=== PATIENT | male | born 1970 | race Hispanic/Latino ===

== ENCOUNTER 2022-06-18 12:39 | Inpatient (IN) | payer SELFPAY ==
[~2022-06-18] VITALS: Ht 165.1 cm; Wt 69.8 kg
[2022-06-18] VITALS (14 sets, daily range): BP systolic 91–118; BP diastolic 57–72
[2022-06-18 14:16] LABS: BASO% 0.3 % (0-3); EOS% 3.5 % (0-8); HEMATOCRIT 33.7 % (39.0-50.0); HEMOGLOBIN 10.9 g/dl (14.0-18.0); IMMATURE GRANULOCYTES 0.1 % (0.0-5.0); LYMPH% 16.3 % (15-41); MEAN CELL VOLUME 89.2 fL CALC (80.0-100.0); MEAN CORPUSCULAR HGB 28.8 pG CALC (26.0-32.0); MEAN CORPUSCULAR HGB CONC 32.3 g/dL CAL (32.0-36.0); MONO% 6.6 % (2-13); NEUT# 6.96 thou/uL (1.82-7.42); NEUT% 73.2 % (42-76); RED BLOOD COUNT 3.78 mill/uL (4.70-6.10); RED CELL DISTRI WIDTH 13.1 % (11.5-15.5)
[2022-06-18 14:18] LABS: GFR FOR AFR.AMER. > 60 ML/MIN (>=60 (CALC)); GFR OTHER RACES > 60 ML/MIN (>=60 (CALC))
[2022-06-18 14:30] LABS: ALBUMIN 3.1 g/dL (3.2-5.0); ALKALINE PHOSPHATASE 79 u/l (38-126); ANION GAP 9 (6-22 (CALC)); BILIRUBIN, TOTAL 0.5 mg/dL (0.0-1.4); BUN 15 mg/dL (9-20); BUN/CREATININE RATIO 17 (12-20 (CALC)); CARBON DIOXIDE 26 mmol/l (22-30); CHLORIDE 108 mmol/l (95-108); CREATININE 0.9 mg/dL (0.7-1.3); GFR FOR AFR.AMER. > 60 ML/MIN (>=60 (CALC)); GFR OTHER RACES > 60 ML/MIN (>=60 (CALC)); LIPASE 51 u/l (23-300); POTASSIUM 3.8 mmol/l (3.5-5.1); SGOT/AST 21 u/l (17-59); SODIUM 139 mmol/l (137-146); TOTAL PROTEIN 5.8 g/dL (6.3-8.2)
[2022-06-18 15:54] LABS: URINE BILIRUBIN - DIPSTICK NEGATIVE (NEGATIVE); URINE BLOOD DIPSTICK NEGATIVE (NEGATIVE); URINE COLOR YELLOW; URINE GLUCOSE - DIPSTICK NEGATIVE (NEGATIVE); URINE KETONE NEGATIVE (NEGATIVE); URINE LEUK ESTERASE NEGATIVE (NEGATIVE); URINE PROTEIN - DIPSTICK NEGATIVE (NEG-TRACE)
[2022-06-18 15:57] LABS: URINE NITRITE - DIPSTICK NEGATIVE (Negative)
[2022-06-19 04:57] VITALS: BP 86/50
[2022-06-19 06:03] LABS: BASO% 0.7 % (0-3); EOS% 5.2 % (0-8); HEMATOCRIT 29.3 % (39.0-50.0); HEMOGLOBIN 9.6 g/dl (14.0-18.0); IMMATURE GRANULOCYTES 0.1 % (0.0-5.0); MEAN CORPUSCULAR HGB 29.8 pG CALC (26.0-32.0); MEAN CORPUSCULAR HGB CONC 32.8 g/dL CAL (32.0-36.0); MONO% 9.1 % (2-13); NEUT# 4.39 thou/uL (1.82-7.42); NEUT% 65.9 % (42-76); RED BLOOD COUNT 3.22 mill/uL (4.70-6.10); RED CELL DISTRI WIDTH 13.1 % (11.5-15.5)
[2022-06-19 06:21] LABS: ANION GAP 8 (6-22 (CALC)); BILIRUBIN, TOTAL 0.5 mg/dL (0.0-1.4); BUN 13 mg/dL (9-20); BUN/CREATININE RATIO 15 (12-20 (CALC)); CARBON DIOXIDE 29 mmol/l (22-30); CHLORIDE 108 mmol/l (95-108); CREATININE 0.9 mg/dL (0.7-1.3); GFR FOR AFR.AMER. > 60 ML/MIN (>=60 (CALC)); GFR OTHER RACES > 60 ML/MIN (>=60 (CALC)); POTASSIUM 3.4 mmol/l (3.5-5.1); SODIUM 141 mmol/l (137-146); TOTAL PROTEIN 5.2 g/dL (6.3-8.2)
[2022-06-19 06:22] LABS: ALBUMIN 2.7 g/dL (3.2-5.0); ALKALINE PHOSPHATASE 68 u/l (38-126); SGOT/AST 17 u/l (17-59)
[2022-06-19 07:04] VITALS: BP 90/53
[2022-06-19 15:46] VITALS: BP 91/55
[2022-06-19 18:53] VITALS: BP 95/56
[2022-06-20] VITALS (19 sets, daily range): BP systolic 85–111; BP diastolic 56–72
[2022-06-21 04:18] VITALS: BP 107/72
[2022-06-21 05:35] LABS: BASO% 0.4 % (0-3); EOS% 5.1 % (0-8); HEMATOCRIT 30.8 % (39.0-50.0); IMMATURE GRANULOCYTES 0.1 % (0.0-5.0); LYMPH% 16.1 % (15-41); MEAN CELL VOLUME 93.1 fL CALC (80.0-100.0); MEAN CORPUSCULAR HGB 30.2 pG CALC (26.0-32.0); MEAN CORPUSCULAR HGB CONC 32.5 g/dL CAL (32.0-36.0); MONO% 6.8 % (2-13); NEUT# 5.13 thou/uL (1.82-7.42); NEUT% 71.5 % (42-76); RED BLOOD COUNT 3.31 mill/uL (4.70-6.10); RED CELL DISTRI WIDTH 13.1 % (11.5-15.5)
[2022-06-21 06:44] VITALS: BP 102/66
[2022-06-21 07:15] LABS: ALBUMIN 2.5 g/dL (3.2-5.0); ALKALINE PHOSPHATASE 65 u/l (38-126); ANION GAP 6 (6-22 (CALC)); BILIRUBIN, TOTAL 0.5 mg/dL (0.0-1.4); BUN 9 mg/dL (9-20); BUN/CREATININE RATIO 9 (12-20 (CALC)); CARBON DIOXIDE 28 mmol/l (22-30); CHLORIDE 106 mmol/l (95-108); CREATININE 1.1 mg/dL (0.7-1.3); GFR FOR AFR.AMER. > 60 ML/MIN (>=60 (CALC)); GFR OTHER RACES > 60 ML/MIN (>=60 (CALC)); POTASSIUM 3.6 mmol/l (3.5-5.1); SGOT/AST 22 u/l (17-59); SODIUM 137 mmol/l (137-146); TOTAL PROTEIN 4.8 g/dL (6.3-8.2)
[2022-06-21 14:42] VITALS: BP 106/70
[2022-06-21 19:04] VITALS: BP 96/66
[2022-06-22 04:59] VITALS: BP 101/65
[2022-06-22 06:20] VITALS: BP 101/68
[2022-06-22] MEDS ORDERED: PERCOCET 5/325M1 TAB PO (13:02)
== END 2022-06-22 14:40 | disposition home or self-care (01) | DRG 357 ==
LOC: ED 12:39 → EDBD 12:39 → ED 15:41 → ED-I 18:09 → ED 18:26 → MS2 18:27
PROVIDERS: Family Medicine; ADMIT Surgery; ATTEND Surgery
PROC: 0WJG0ZZ Inspection of Peritoneal Cavity, Open Approach (ICD-10-PCS; principal; 2022-06-20)
PROC: 0T788DZ Dilation of Bilateral Ureters with Intraluminal Device, Via Natural or Artificial Opening Endoscopic (ICD-10-PCS; 2022-06-20)
PROC: 0DBN8ZX Excision of Sigmoid Colon, Via Natural or Artificial Opening Endoscopic, Diagnostic (ICD-10-PCS; 2022-06-20)
DX: C18.7 Malignant neoplasm of sigmoid colon (principal); C78.4 Secondary malignant neoplasm of small intestine; C79.89 Secondary malignant neoplasm of other specified sites; K56.690 Other partial intestinal obstruction; C78.5 Secondary malignant neoplasm of large intestine and rectum; I10 Essential (primary) hypertension; Z90.49 Acquired absence of other specified parts of digestive tract; Z20.822 Contact with and (suspected) exposure to COVID-19
CPT/HCPCS: J0131; Q9967

== ENCOUNTER 2022-07-28 19:35 | Emergency (ER) | payer SELFPAY ==
[~2022-07-28] VITALS: Ht 165.1 cm; Wt 65.9 kg
[~2022-07-28 19:35] MED LIST: PERCOCET 5/325M1 TAB PO
[2022-07-28 21:00] LABS: BASO% 0.2 % (0-3); EOS% 0.2 % (0-8); IMMATURE GRANULOCYTES 0.2 % (0.0-5.0); LYMPH% 5.6 % (15-41); MEAN CELL VOLUME 89.2 fL CALC (80.0-100.0); MEAN CORPUSCULAR HGB 28.8 pG CALC (26.0-32.0); MEAN CORPUSCULAR HGB CONC 32.2 g/dL CAL (32.0-36.0); MONO% 1.2 % (2-13); NEUT# 4.64 thou/uL (1.82-7.42); NEUT% 92.6 % (42-76); RED BLOOD COUNT 4.8 mill/uL (4.70-6.10); RED CELL DISTRI WIDTH 12.2 % (11.5-15.5)
[2022-07-28 21:01] LABS: HEMATOCRIT 42.8 % (39.0-50.0); HEMOGLOBIN 13.8 g/dl (14.0-18.0)
[2022-07-28 21:13] LABS: ALBUMIN 2.8 g/dL (3.2-5.0); ALKALINE PHOSPHATASE 74 u/l (38-126); ANION GAP 7 (6-22 (CALC)); BUN 15 mg/dL (9-20); BUN/CREATININE RATIO 14 (12-20 (CALC)); CARBON DIOXIDE 26 mmol/l (22-30); CHLORIDE 105 mmol/l (95-108); CREATININE 1.1 mg/dL (0.7-1.3); GFR FOR AFR.AMER. > 60 ML/MIN (>=60 (CALC)); GFR OTHER RACES > 60 ML/MIN (>=60 (CALC)); LIPASE 160 u/l (23-300); POTASSIUM 3.3 mmol/l (3.5-5.1); SGOT/AST 26 u/l (17-59); SODIUM 134 mmol/l (137-146); TOTAL PROTEIN 5.7 g/dL (6.3-8.2)
[2022-07-29] MEDS ORDERED: LORTAB5 PO (03:07)
[2022-07-29] MEDS ORDERED: PROMETHAZINE HY25 M1 PO (03:09)
[2022-07-29 03:18] VITALS: BP 126/80
== END 2022-07-29 03:40 | disposition home or self-care (01) | DRG 392 ==
LOC: ED 19:35
PROVIDERS: Family Medicine
DX: R10.9 Unspecified abdominal pain (principal); C18.9 Malignant neoplasm of colon, unspecified; C79.89 Secondary malignant neoplasm of other specified sites; K21.9 Gastro-esophageal reflux disease without esophagitis
CPT/HCPCS: Q9967

== ENCOUNTER 2022-08-24 16:26 | Inpatient (IN) | payer SELFPAY ==
[~2022-08-24] VITALS: Ht 165.1 cm; Wt 69.1 kg
[2022-08-24] VITALS (22 sets, daily range): BP systolic 71–118; BP diastolic 43–69
[~2022-08-24 16:26] MED LIST changes: +LORTAB5 PO; +PROMETHAZINE HY25 M1 PO
--- NOTE | 2022-08-24 16:33 | NUR ---
PATIENT TO ROOM 12
[2022-08-24 17:17] LABS: BASO% 0.3 % (0-3); EOS% 0.1 % (0-8); IMMATURE GRANULOCYTES 0.2 % (0.0-5.0); LYMPH% 7.7 % (15-41); MEAN CELL VOLUME 92.3 fL CALC (80.0-100.0); MEAN CORPUSCULAR HGB 29.3 pG CALC (26.0-32.0); MEAN CORPUSCULAR HGB CONC 31.8 g/dL CAL (32.0-36.0); MONO% 6.6 % (2-13); NEUT# 14.73 thou/uL (1.82-7.42); NEUT% 85.1 % (42-76); RED BLOOD COUNT 3.65 mill/uL (4.70-6.10)
[2022-08-24 17:22] LABS: HEMATOCRIT 33.7 % (39.0-50.0); HEMOGLOBIN 10.7 g/dl (14.0-18.0)
[2022-08-24 17:24] LABS: ALBUMIN 2.3 g/dL (3.2-5.0); ALKALINE PHOSPHATASE 57 u/l (38-126); ANION GAP 11 (6-22 (CALC)); BUN 26 mg/dL (9-20); BUN/CREATININE RATIO 16 (12-20 (CALC)); CARBON DIOXIDE 21 mmol/l (22-30); CHLORIDE 102 mmol/l (95-108); CREATININE 1.6 mg/dL (0.7-1.3); GFR FOR AFR.AMER. 56 ML/MIN (>=60 (CALC)); GFR OTHER RACES 46 ML/MIN (>=60 (CALC)); POTASSIUM 3.6 mmol/l (3.5-5.1); SGOT/AST 26 u/l (17-59); SODIUM 130 mmol/l (137-146)
[2022-08-24 17:30] LABS: BILIRUBIN, TOTAL 0.5 mg/dL (0.2-1.3)
--- NOTE | 2022-08-24 17:58 | NUR ---
Reassessment of patient completed. No distress noted.
[2022-08-24] MEDS ORDERED: ONDANSETRON4 MG PO (18:36)
--- NOTE | 2022-08-24 18:56 | NUR ---
TRANSITION OF CARE REPORT TO CRISTAL BUNN
--- NOTE | 2022-08-24 19:40 | NUR ---
52 yr old VERY pale male adm icu4 per stretcher from er. transferred self to bed. security monitor shows sinus rhythm. ivf cont per rac site & rt chest port. pt is able to speak broken polish. history obtained per pt, sister & er record. oriented to room. fall precautions initiated.
--- NOTE | 2022-08-24 20:00 | NUR ---
voided per urinal. urine spec sent. lab here. blood drawn.
[2022-08-24 20:17] LABS: URINE BILIRUBIN - DIPSTICK NEGATIVE (NEGATIVE); URINE BLOOD DIPSTICK NEGATIVE (NEGATIVE); URINE COLOR YELLOW; URINE GLUCOSE - DIPSTICK NEGATIVE (NEGATIVE); URINE KETONE NEGATIVE (NEGATIVE); URINE LEUK ESTERASE NEGATIVE (NEGATIVE); URINE PH 5.5 (4.5-8.0); URINE PROTEIN - DIPSTICK NEGATIVE (NEG-TRACE); URINE SPECIFIC GRAVITY 1.015; URINE UROBILINOGEN - DIPSTICK 0.2 E.U./dL (0.2)
[2022-08-24 20:19] LABS: URINE NITRITE - DIPSTICK NEGATIVE (Negative)
--- NOTE | 2022-08-24 21:50 | NUR ---
up to bs. stool spec sent to lab.
[2022-08-25] VITALS (95 sets, daily range): BP systolic 91–129; BP diastolic 59–89
--- NOTE | 2022-08-25 00:05 | NUR ---
up to bsc. loose stools cont.
--- NOTE | 2022-08-25 02:00 | NUR ---
eyes closed. no distress. weigher and crusher shows sinus rhythm.
--- NOTE | 2022-08-25 03:00 | NUR ---
up to bsc. had loose stool. no distress.
[2022-08-25 04:57] LABS: HEMATOCRIT 30.6 % (39.0-50.0); HEMOGLOBIN 9.8 g/dl (14.0-18.0); MEAN CELL VOLUME 91.1 fL CALC (80.0-100.0); MEAN CORPUSCULAR HGB 29.2 pG CALC (26.0-32.0); RED BLOOD COUNT 3.36 mill/uL (4.70-6.10); RED CELL DISTRI WIDTH 15.7 % (11.5-15.5)
[2022-08-25 05:09] LABS: ALKALINE PHOSPHATASE 50 u/l (38-126); ANION GAP 5 (6-22 (CALC)); BILIRUBIN, TOTAL 0.3 mg/dL (0.2-1.3); BUN 22 mg/dL (9-20); BUN/CREATININE RATIO 23 (12-20 (CALC)); CARBON DIOXIDE 19 mmol/l (22-30); CHLORIDE 110 mmol/l (95-108); GFR FOR AFR.AMER. > 60 ML/MIN (>=60 (CALC)); GFR OTHER RACES > 60 ML/MIN (>=60 (CALC)); MAGNESIUM 1.4 mg/dL (1.6-2.3); POTASSIUM 3.2 mmol/l (3.5-5.1); SGOT/AST 21 u/l (17-59); SODIUM 132 mmol/l (137-146)
[2022-08-25 05:20] LABS: ALBUMIN 1.6 g/dL (3.2-5.0); TOTAL PROTEIN 3.7 g/dL (6.3-8.2)
--- NOTE | 2022-08-25 05:30 | NUR ---
up to bsc. matthew well. loose stools cont.
--- NOTE | 2022-08-25 07:00 | NUR ---
REPORT RECEIVED FROM MANAGER CASE MANAGEMENT - PT OBSERVED IN BED WITH EYES CLOSED - NO S/S DISTRESS - STABLE ON LEVO @ 10 - CALL LIGHT IN LAP
--- NOTE | 2022-08-25 09:22 | NUR ---
PT DENIES ANY NEEDS AT THIS TIME - HAS FAMILY BEDSIDE - PT STABLE ON LEVO @ 10 - NO S/S DISTRESS - CALL LIGHT IN REACH
--- NOTE | 2022-08-25 11:07 | NUR ---
PT RESTING IN BED WITH EYES CLOSED- STABLE ON LEVO - NO S/S DISTRESS - CALL LIGHT IN REACH
--- NOTE | 2022-08-25 13:10 | NUR ---
PT C/O PAIN - MEDICATED PER MD ORDER - PT VSS ON LEVO @ 10 - NO NEW ORDERS - CALL LIGHT IN REACH
--- NOTE | 2022-08-25 15:38 | NUR ---
PT RESTING IN BED WITH EYES CLOSED - STABLE ON LEVO @ 10 - CALL LIGHT IN REACH
--- NOTE | 2022-08-25 16:22 | NUR ---
S: EHSAN HAGEN is a 52 M who presents with SEPTIC SHOCK. He has a history of COLON CANCER, PNEUMONIA. All medications in patient's chart were reviewed. O: VS: BP <113/73>, P<67>, RR<14>,T<98.2> W <66kg>, HT<65IN>, Scr=<1.0>,CrCl= <68ml/min> A: Blood culture <is pending P: Patient is on CEFEPIME 1 GRAM Q12H . Vancomycin ordered for pharmacy to dose. Start Vancomycin 1 GRAM Q24H IV Q24H. Vancomycin trough is drawn before the 4th dose on 08/27/22 @1630. Vancomycin goal trough is between <15-20 mcg/ml>. Pharmacy will follow and or advise on antibiotics use as needed. BENITO MARCUSD
--- NOTE | 2022-08-25 17:03 | NUR ---
NNO - pt denies any needs - call light in reach
[2022-08-26] VITALS (98 sets, daily range): BP systolic 31–115; BP diastolic 15–82
[2022-08-26 05:25] LABS: HEMATOCRIT 28.7 % (39.0-50.0); HEMOGLOBIN 9.2 g/dl (14.0-18.0); MEAN CELL VOLUME 90.5 fL CALC (80.0-100.0); MEAN CORPUSCULAR HGB CONC 32.1 g/dL CAL (32.0-36.0); RED BLOOD COUNT 3.17 mill/uL (4.70-6.10); RED CELL DISTRI WIDTH 15.6 % (11.5-15.5)
[2022-08-26 05:48] LABS: ALBUMIN 1.5 g/dL (3.2-5.0); ALKALINE PHOSPHATASE 55 u/l (38-126); ANION GAP 4 (6-22 (CALC)); BUN 14 mg/dL (9-20); BUN/CREATININE RATIO 17 (12-20 (CALC)); CARBON DIOXIDE 22 mmol/l (22-30); CHLORIDE 107 mmol/l (95-108); CREATININE 0.8 mg/dL (0.7-1.3); GFR FOR AFR.AMER. > 60 ML/MIN (>=60 (CALC)); GFR OTHER RACES > 60 ML/MIN (>=60 (CALC)); POTASSIUM 3.3 mmol/l (3.5-5.1); SGOT/AST 18 u/l (17-59); SODIUM 130 mmol/l (137-146); TOTAL PROTEIN 3.8 g/dL (6.3-8.2)
[2022-08-26 05:53] LABS: BILIRUBIN, TOTAL 0.1 mg/dL (0.2-1.3); MAGNESIUM 2.1 mg/dL (1.6-2.3)
--- NOTE | 2022-08-26 08:16 | NUR ---
REPORT RECEIVED FROM [employer] SALES ASSOCIATE - PT OBSERVED IN BED WITH EYES CLOSED - STABLE ON MONITOR - BED IN LOWEST LOCK POSITION - CALL LIGHT IN REACH
--- NOTE | 2022-08-26 10:50 | NUR ---
Pt in bed - family bedside - c/o pain this am so medicated per md order - pt denies any needs at this time - call light in reach
--- NOTE | 2022-08-26 12:00 | NUR ---
nno - pt in bed with sister bedside- call light in reach
--- NOTE | 2022-08-26 14:28 | NUR ---
NNO - Pt is resting in bed - stable on monitor - levo @ 6 - call light in reach
--- NOTE | 2022-08-26 18:13 | NUR ---
NNO - pt stable on levo @ 5 - call light in reach
[2022-08-27] VITALS (93 sets, daily range): BP systolic 80–107; BP diastolic 45–73
[2022-08-27 05:48] LABS: HEMATOCRIT 26.2 % (39.0-50.0); HEMOGLOBIN 8.3 g/dl (14.0-18.0); MEAN CELL VOLUME 91.3 fL CALC (80.0-100.0); MEAN CORPUSCULAR HGB 28.9 pG CALC (26.0-32.0); MEAN CORPUSCULAR HGB CONC 31.7 g/dL CAL (32.0-36.0); RED BLOOD COUNT 2.87 mill/uL (4.70-6.10); RED CELL DISTRI WIDTH 15.8 % (11.5-15.5)
[2022-08-27 06:03] LABS: ALBUMIN 1.4 g/dL (3.2-5.0); ALKALINE PHOSPHATASE 54 u/l (38-126); BUN 9 mg/dL (9-20); BUN/CREATININE RATIO 13 (12-20 (CALC)); CARBON DIOXIDE 24 mmol/l (22-30); CHLORIDE 109 mmol/l (95-108); CREATININE 0.7 mg/dL (0.7-1.3); GFR FOR AFR.AMER. > 60 ML/MIN (>=60 (CALC)); GFR OTHER RACES > 60 ML/MIN (>=60 (CALC)); MAGNESIUM 1.9 mg/dL (1.6-2.3); SGOT/AST 19 u/l (17-59); SODIUM 132 mmol/l (137-146); TOTAL PROTEIN 3.5 g/dL (6.3-8.2)
[2022-08-27 06:04] LABS: ANION GAP 2 (6-22 (CALC))
--- NOTE | 2022-08-27 07:34 | NUR ---
PT REPORT RECEIVED FROM CAN INSPECTOR. PT ALERT/ORIENTED, LEVOPHED INFUSING AT 3, VITAL SIGNS STABLE.
--- NOTE | 2022-08-27 11:17 | NUR ---
pt sitting up in bed watching tv, have levophed drip shut off at this moment with b/p 91/64 map of 70. pt had bowel movement, loose light brownstool
--- NOTE | 2022-08-27 13:30 | NUR ---
pt vital signs stable, will continue to moniter. blood pressure 99/64
--- NOTE | 2022-08-27 15:19 | NUR ---
pt had another bowel movement. able yo get up and move to bedside commode on his own and back to bed. bloodpressure is 90/60 with levo off.
--- NOTE | 2022-08-27 17:22 | NUR ---
VANCOMYACIN TROUGH LESS THAN 5, PHARMACY NOTIFIED AND NEW DOSAGE OF VANCOMYACIN HUNG.
--- NOTE | 2022-08-27 19:30 | NUR ---
awake. watching tv. denies distress. virtualization architect shows sinus rhythm. #20 rac saline lock. ns infusing @ 100cchr per rt chest port. po fluids taken well. voids per urinal. fall precautions cont. family @ bedside.
--- NOTE | 2022-08-27 22:00 | NUR ---
watching tv. no distress. voided well.
[2022-08-28] VITALS (23 sets, daily range): BP systolic 80–103; BP diastolic 52–73
--- NOTE | 2022-08-28 00:01 | NUR ---
eyes closed. no distress. conveyor monitor shows sinus rhythm.
--- NOTE | 2022-08-28 02:00 | NUR ---
resting quietly. resps even & unlabored. no apparent distress.
--- NOTE | 2022-08-28 04:14 | NUR ---
blood drawn & sent to lab
[2022-08-28 05:23] LABS: HEMATOCRIT 25.9 % (39.0-50.0); HEMOGLOBIN 8.2 g/dl (14.0-18.0); MEAN CELL VOLUME 92.5 fL CALC (80.0-100.0); MEAN CORPUSCULAR HGB 29.3 pG CALC (26.0-32.0); MEAN CORPUSCULAR HGB CONC 31.7 g/dL CAL (32.0-36.0); RED BLOOD COUNT 2.8 mill/uL (4.70-6.10); RED CELL DISTRI WIDTH 16.2 % (11.5-15.5)
[2022-08-28 05:37] LABS: ALBUMIN 1.4 g/dL (3.2-5.0); ALKALINE PHOSPHATASE 48 u/l (38-126); ANION GAP 2 (6-22 (CALC)); BUN 8 mg/dL (9-20); BUN/CREATININE RATIO 13 (12-20 (CALC)); CARBON DIOXIDE 24 mmol/l (22-30); CHLORIDE 109 mmol/l (95-108); CREATININE 0.6 mg/dL (0.7-1.3); GFR FOR AFR.AMER. > 60 ML/MIN (>=60 (CALC)); GFR OTHER RACES > 60 ML/MIN (>=60 (CALC)); MAGNESIUM 1.8 mg/dL (1.6-2.3); POTASSIUM 3.3 mmol/l (3.5-5.1); SGOT/AST 22 u/l (17-59); SODIUM 133 mmol/l (137-146); TOTAL PROTEIN 3.4 g/dL (6.3-8.2)
--- NOTE | 2022-08-28 05:58 | NUR ---
awake. no c/o voiced.
--- NOTE | 2022-08-28 06:38 | NUR ---
REPORT RECEIVED FROM NOVELTY TWISTER TENDER. PT SLEPT THRU THE NIGHT, ANDD NO COMPLAINTS AT THIS TIME, LEVO REMAINS OFF. BLOOD PRESURE STABLE.
--- NOTE | 2022-08-28 09:41 | NUR ---
WILL CONTINUE TO MONITER AND ASSESS PT. PT AT THIS TIME HAS NO COMPLAINTS. VITAL SIGNS REMAIN STABLE.
--- NOTE | 2022-08-28 13:58 | NUR ---
PT RESTING QUIETLY ON BED, HAS HAD 2 REGULAR BOWEL LMOVENTS THIS AM. VITAL SIGNS STABLE. DENIES ANY DISTRESS.
--- NOTE | 2022-08-28 15:47 | NUR ---
PT TRANSFERRED WITH REPORT GIVEN TO FRENCH FOR CONTINUATION OF CARE.
--- NOTE | 2022-08-28 16:26 | NUR ---
PT ARRIVED FROM ICU TO MS. PT A/OX3 PT HEART RHYTHM ON TELE.RESPIRATIONS ON ROOMAIR. VS STABLE.MEDICATED PER EMAR.IV SITE NOTED PORT NOTED. PT SAFETYPRECAUTIONS IN PLACE .PTAMBULATORY TO RESTROOM.
--- NOTE | 2022-08-28 20:03 | NUR ---
PT AX4 RESTING WATCHING TV, SIMA LIGHT WITHIN REACHED, WILL CONT TO MONITOR
--- NOTE | 2022-08-29 01:17 | NUR ---
OXYCODONE 1 TAB Q4H PRN GIVEN PT C/O AB PAIN, WILL REASSESS
[2022-08-29 03:22] VITALS: BP 96/60
[2022-08-29 05:35] VITALS: BP 93/60
[2022-08-29 06:28] LABS: HEMATOCRIT 26.9 % (39.0-50.0); HEMOGLOBIN 8.4 g/dl (14.0-18.0); MEAN CELL VOLUME 92.1 fL CALC (80.0-100.0); MEAN CORPUSCULAR HGB 28.8 pG CALC (26.0-32.0); MEAN CORPUSCULAR HGB CONC 31.2 g/dL CAL (32.0-36.0); RED BLOOD COUNT 2.92 mill/uL (4.70-6.10); RED CELL DISTRI WIDTH 16.4 % (11.5-15.5)
[2022-08-29 07:14] LABS: ALBUMIN 1.4 g/dL (3.2-5.0); ALKALINE PHOSPHATASE 56 u/l (38-126); ANION GAP 3 (6-22 (CALC)); BUN 10 mg/dL (9-20); BUN/CREATININE RATIO 15 (12-20 (CALC)); CARBON DIOXIDE 23 mmol/l (22-30); CHLORIDE 111 mmol/l (95-108); CREATININE 0.7 mg/dL (0.7-1.3); GFR FOR AFR.AMER. > 60 ML/MIN (>=60 (CALC)); GFR OTHER RACES > 60 ML/MIN (>=60 (CALC)); MAGNESIUM 1.7 mg/dL (1.6-2.3); POTASSIUM 3.4 mmol/l (3.5-5.1); SGOT/AST 29 u/l (17-59); SODIUM 134 mmol/l (137-146); TOTAL PROTEIN 3.6 g/dL (6.3-8.2)
--- NOTE | 2022-08-29 08:00 | NUR ---
PATIENT AWAKE ALERT AND ORIENTED, NO S/S OF DISTRESS NOTED. IV FLUIDS RUNNING, ASSSESSMENT COMPLETED, SAFETY PRECAUTIONS IN PLACE.
--- NOTE | 2022-08-29 08:03 | NUR ---
PT VITALS NORMAL PAIN MEDS AND ABX GIVEN, CALL LIGHT WITHIN REACHED , WILL CONT TO MONITOR
[2022-08-29] MEDS ORDERED: LORTAB5 PO ×2 (09:38→09:44)
[2022-08-29] MEDS ORDERED: LEVAQUIN750 M1 PO (09:38)
[2022-08-29] MEDS ORDERED: MIDODRINE5 MG PO (09:42)
--- NOTE | 2022-08-29 15:35 | NUR ---
PATIENT RECEIVED DISCHARGE INSTRUCTIONS AND PRESCRIPTIONS, PATIENT VERABLIZED UNDERSTADING TO DISCHARGE INSTRUCTIONS, IV REMOVED CATHETER INTACT, PORTACATH DEACCESSED PER ORDER, PATIENT DISCHARGE HOME WITH FAMILY VIA W/C IN STABLE CONDITION.
== END 2022-08-29 15:33 | disposition home or self-care (01) | DRG 871 ==
LOC: ED 16:26 → ED-I 17:30 → ED 18:04 → ICU 18:05 → MS2 08-28 15:35
PROVIDERS: Family Medicine; ADMIT Internal Medicine; ATTEND Internal Medicine
PROC: 3E043XZ Introduction of Vasopressor into Central Vein, Percutaneous Approach (ICD-10-PCS; principal; 2022-08-24)
DX: A41.9 Sepsis, unspecified organism (principal); J18.9 Pneumonia, unspecified organism; R65.21 Severe sepsis with septic shock; C18.9 Malignant neoplasm of colon, unspecified; C79.9 Secondary malignant neoplasm of unspecified site; A04.4 Other intestinal Escherichia coli infections; I95.9 Hypotension, unspecified; E83.42 Hypomagnesemia; E87.6 Hypokalemia; K21.9 Gastro-esophageal reflux disease without esophagitis; K64.8 Other hemorrhoids; Z90.49 Acquired absence of other specified parts of digestive tract; Z20.822 Contact with and (suspected) exposure to COVID-19; Z95.828 Presence of other vascular implants and grafts; Z79.69 Long term (current) use of other immunomodulators and immunosuppressants
CPT/HCPCS: J0692; J1650; J3370; J3475